=== PATIENT | male | born 1980 | race Caucasian/White ===

== ENCOUNTER → 2023-04-17 | Emergency (ER) | payer OTHER ==
[~2023-04-17] VITALS: Ht 182.9 cm; Wt 77.3 kg
[2023-04-17 16:06] VITALS: BP 130/88; PULSE 68; TEMP 98.1
== END ==
LOC: COL.ER 16:03
DX: S93.402A Sprain of unspecified ligament of left ankle, initial encounter (principal); S93.401A Sprain of unspecified ligament of right ankle, initial encounter; X58.XXXA Exposure to other specified factors, initial encounter; Y93.31 Activity, mountain climbing, rock climbing and wall climbing